=== PATIENT | male | born 1945 | race Caucasian/White ===

== ENCOUNTER 2017-09-14 09:31 | Outpatient (CLI) | payer MEDICARE, OTHER ==
--- NOTE | 2017-09-14 11:15 | CT ---
CT ABDOMEN AND PELVIS WITH AND WITHOUT IV CONTRAST: HISTORY: Asymptomatic microscopic hematuria. COMPARISON: 07/08/2010 FINDINGS: There is old granulomatous disease in the visualized portions of the chest. The liver, spleen, pancr eas, and adrenal glands are normal. No calcified gallstones are seen. There is a tiny soft tissue d ensity in the dependent portions of the gallbladder. No calculi are seen in the kidneys or the ureters. There is an 8 mm calculus in the urinary bladder, on the left, posteriorly. Bilateral parapelvic cysts are again seen. No enhancing renal mass is id entified. The prostate is mildly enlarged. There is thickening of the wall of the urinary bladder. There is a circumaortic left renal vein. No free air, free fluid, or lymphadenopathy is seen in the abdomen or pelvis. There are vascular arsenio cifications without evidence of aneurysmal dilatation of the abdominal aorta. Degenerative changes a re seen in the spine. IMPRESSION: 1. An 8 mm bladder calculus. 2. Mild prostatic enlargement and bladder wall thickening. 3. Bilateral parapelvic renal cysts. 4. Tiny density in the gallbladder. Dedicated gallbladder ultrasound is recommended. POS: [facility]
== END 2017-09-14 09:32 | disposition home or self-care (01) ==
LOC: SCSCT 09:31
PROVIDERS: ATTEND Urology
DX: R31.21 Asymptomatic microscopic hematuria (principal); N21.0 Calculus in bladder; N28.1 Cyst of kidney, acquired; N40.0 Benign prostatic hyperplasia without lower urinary tract symptoms; N32.89 Other specified disorders of bladder
CPT/HCPCS: 74178; 82565

== ENCOUNTER 2017-10-11 09:34 | Outpatient (CLI) | payer MEDICARE, OTHER ==
[2017-10-11 10:21] LABS: Bilirubin Negative (Negative); Blood, Urine Negative (Negative); Clarity CLEAR (Clear); Glucose, Urine (Dipstick) Negative (Negative); Leukocyte Moderate (Negative); Nitrite Negative (Negative); Protein, Urine (Dipstick) Negative (Neg-Trace); Urobilinogen 0.2 mg/dL (0.2-1.0); pH, Urine 6.5 (5.0-9.0)
[2017-10-11 10:23] LABS: Bacteria/HPF 1+ HPF (None Seen); Hyaline Casts/LPF 0-3 HYALINE CAST LPF (0-3 Hyaline); Pathc Cast-AUWi Flag 0.27 (0-2.49); RBC/HPF 0-3 HPF (0-3); Squamous Epithelial None Seen HPF (0-3); WBC/HPF 21-50 HPF (0-3)
[2017-10-11 10:25] LABS: #Basophils 0.1 thou/uL (0.0-0.2); #Eosinphils 0.1 thou/uL (0.0-0.7); #Lymphocytes 2.2 thou/uL (1.20-3.40); #Monocytes 0.6 thou/uL (0.11-0.59); #Neutrophils 3.3 thou/uL (1.40-6.50); %Eosinophils 1.6 % (0.0-10.0); %Lymphocytes 35.4 % (21.0-51.0); %Monocytes 9.4 % (0.0-10.0); %Neutrophils 52.6 % (42.0-75.0); Mean Corpuscular HGB CONC 33.8 g/dL (32.0-36.0); Mean Corpuscular Hemoglobin 32.7 pg (27.0-31.0); Mean Corpuscular Volume 96.8 fl (80.0-94.0); Mean Platelet Volume 7.6 fL (7.4-10.4); Platelet Count 240 thou/uL (130-400); RBC Distribution Width 12.4 % (11.5-14.5); White Blood Cell (WBC) Count 6.3 thou/uL (4.8-10.8)
[2017-10-11 10:30] LABS: Yeast-AUWi Flag 25.6 (0-25.0)
[2017-10-11 10:32] LABS: Yeast-All Forms None Seen HPF (None Seen)
[2017-10-11 11:35] LABS: Anion Gap 10 mmol/L (10-20); BUN (Urea Nitrogen) 13 mg/dL (8.4-25.7); Calc. Creatinine Clearance 0 mL/min (70-130); Calcium 9.5 mg/dL (7.8-10.44); Carbon Dioxide 27 mmol/L (23-31); Chloride 108 mmol/L (98-107); Estimated GFR-MDRD 89; Glucose 133 mg/dL (80-115); Potassium 3.8 mmol/L (3.5-5.1); Sodium 141 mmol/L (136-145)
== END 2017-10-11 09:35 | disposition home or self-care (01) ==
LOC: EKG 09:34
PROVIDERS: ATTEND Urology
DX: N40.1 Benign prostatic hyperplasia with lower urinary tract symptoms (principal)
CPT/HCPCS: 36415; 80048; 81001; 85025; 87077; 87086; 87186; 93005; 93010

== ENCOUNTER 2017-10-18 05:59 | Day surgery (SDC) | payer MEDICARE, OTHER ==
[2017-10-12 16:28] VITALS: BMI 30.4
[2017-10-18] MEDS ORDERED: Levofloxacin 500 mg/D5W 100 ml Premix Bag ONE (06:15)
[2017-10-18] MEDS ORDERED: Dexamethasone 4 mg/ml Vial ONE (06:16)
[2017-10-18] MEDS ORDERED: Fentanyl 100 MCG/2 ML VIAL ONE (06:25)
[2017-10-18] MEDS ORDERED: Iothalamate Meglumine 60% 50 ML VIAL FS ONE (06:33)
[2017-10-18] MEDS ORDERED: Furosemide 20 MG/2 ML VIAL ONE (09:33)
[2017-10-18] MEDS ORDERED: B & O ONE (09:37)
--- NOTE | 2017-10-18 14:09 | OP ---
DATE OF SERVICE: 10/18/2017 PREOPERATIVE DIAGNOSES: Bladder stone and benign prostatic hypertrophy. POSTOPERATIVE DIAGNOSES: Bladder stone and benign prostatic hypertrophy. PROCEDURE: GreenLight laser vaporization of the prostate with enucleation of the lateral lobes using 224,332 joules as well as cystolitholapaxy with holmium laser lithotripsy. SURGEON: Dr. Wilma Andrade ANESTHESIA: General with ET tube. SPECIMENS: Prostate, bladder stone. COMPLICATIONS: None. But there was significant venous bleeding from the right lateral lobe that required pressure with the balloon of a hubbard. ESTIMATED BLOOD LOSS: Blood loss was approximately 100 mL. DRAIN: Drain remaining was a 20 Indonesian 2-way. INDICATIONS: The patient is a 71-year-old male who is followed in the office and noted to have a bladder stone and BPH who is set up for definitive therapy based on the size of the stone and prostate and the lack of significant hematuria, I felt this could be done in the same procedure so he was set up for this. TECHNIQUE: The patient was brought into the room by Anesthesia, laid on the table in supine position after receiving general anesthetic. His legs were placed in lithotomy position and his perineum was prepped and draped in sterile fashion. Using a 22.5 Indonesian cystoscope and 30 degree lens it was traversed and the bladder inspected. The stone was noted and stayed out of the way and then attention was turned to the prostate were GreenLight was performed first. The middle lobe was taken down to the floor and then the lateral lobes were enucleated. The left lateral lobe did coalesce into the middle lobe more distally and this was all enucleated. The chips were all washed out and then the stone itself was still too large to be washed out, even with the prostate wide open. Prior to reaching the prostate, there was some venous oozing noted on the right and this was significant enough that I removed the scope and put a balloon blown up to 30 mL into the prostate and applied pressure of approximately 5-10 minutes. Once this was taken down and then put back in, there was significant clot that had to be irrigated out, but the bleeding had stopped. When the scope was removed a good stream was noted. Scope was put back in and assured all clots and chips were out and then attention was turned to the bladder stone. Holmium laser lithotripsy fragmented the stone into multiple fragments which were all removed and sent for specimen. At this point, the scope was removed a final time and a 20 Indonesian Hubbard was placed to gravity. The patient tolerated the procedure well and was then awakened and transferred to PACU in stable condition. POWER
[2017-10-18] MEDS ORDERED: Propofol 200 MG/20 ML VIAL ONE (16:03)
[2017-10-18] MEDS ORDERED: Lidocaine 1% PF 5 ML VIAL ONE (16:03)
[2017-10-18] MEDS ORDERED: ePHEDrine/0.9% NaCl/PF SYRINGE 50 mg/10 ml ONE (16:03)
[2017-10-18] MEDS ORDERED: Metoclopramide HCl 10 MG/2 ML VIAL ONE (16:03)
[2017-10-18] MEDS ORDERED: Glycopyrrolate 0.2 MG/ML 5 ML SYRINGE ONE (16:03)
[2017-10-18] MEDS ORDERED: diphenhydrAMINE 50 MG/ML VIAL ONE (16:03)
[2017-10-18] MEDS ORDERED: Ondansetron HCl/PF 4 MG/2 ML Vial ONE (16:03)
== END 2017-10-18 12:02 | disposition home or self-care (01) ==
LOC: SDC 05:59
PROVIDERS: ATTEND Urology
PROC: 0TCB8ZZ Extirpation of Matter from Bladder, Via Natural or Artificial Opening Endoscopic (ICD-10-PCS; principal; 2017-10-18)
PROC: 0V508ZZ Destruction of Prostate, Via Natural or Artificial Opening Endoscopic (ICD-10-PCS; 2017-10-18)
DX: N40.1 Benign prostatic hyperplasia with lower urinary tract symptoms (principal); N41.0 Acute prostatitis; N41.1 Chronic prostatitis; N21.0 Calculus in bladder; R39.12 Poor urinary stream; R35.0 Frequency of micturition; R39.11 Hesitancy of micturition; R35.1 Nocturia; E78.5 Hyperlipidemia, unspecified; N52.9 Male erectile dysfunction, unspecified; K51.90 Ulcerative colitis, unspecified, without complications; M19.90 Unspecified osteoarthritis, unspecified site; Z87.442 Personal history of urinary calculi; Z85.831 Personal history of malignant neoplasm of soft tissue; Z92.3 Personal history of irradiation; Z85.828 Personal history of other malignant neoplasm of skin; Z80.8 Family history of malignant neoplasm of other organs or systems; Z80.6 Family history of leukemia; Z79.899 Other long term (current) drug therapy; Z79.82 Long term (current) use of aspirin; Z88.5 Allergy status to narcotic agent; Z91.048 Other nonmedicinal substance allergy status; Z90.49 Acquired absence of other specified parts of digestive tract; Z98.890 Other specified postprocedural states
CPT/HCPCS: 82365; 88300; 88305; J0131; J1100; J1200; J1940; J1956; J2001; J2405; J2704; J2765; J3010; Q9961

== ENCOUNTER 2018-11-24 08:39 | Outpatient (CLI) | payer MEDICARE, OTHER ==
--- NOTE | 2018-11-24 09:12 | RAD ---
RADIOGRAPH ABDOMEN 1 VIEW: Date: 11/24/18 HISTORY: 73-year-old male with Z87.442, personal history of urinary calculi. History of bladder stone. COMPARISON: No prior [facility]. FINDINGS: No radiopaque calculus is visualized overlying the renal shadows, pelvis, or elsewhere in the abdomen . Bowel gas pattern is normal. IMPRESSION: Negative. POS: [facility]
== END 2018-11-24 08:40 | disposition home or self-care (01) ==
LOC: SCSRAD 08:39
PROVIDERS: ATTEND Urology
DX: Z09 Encounter for follow-up examination after completed treatment for conditions other than malignant neoplasm (principal); Z87.442 Personal history of urinary calculi
CPT/HCPCS: 74018

== ENCOUNTER 2019-10-05 08:30 | Outpatient (CLI) | payer MEDICARE, OTHER ==
--- NOTE | 2019-10-05 09:57 | ULT ---
HEPATIC DOPPLER: HISTORY: Elevated LFTs. COMPARISON: None. TECHNIQUE: Grayscale imaging of the liver is performed along with Doppler, color flow and spectral waveform anal ysis. FINDINGS: The head of pancreas has a normal echotexture. The remainder the pancreas is obscured by bowel gas. Increased echogenicity of the liver which may be due to hepatic steatosis or hepatocellular disease. Subsequent limited evaluation for hepatic masses and intrahepatic biliary dilatation. Right hepatic lobe measures 16.5 cm. Nonmobile echogenic foci adhering to the wall of the gallbladder which may represent multiple gallbla dder wall polyps. The largest polyp measures 0.8 cm. No evidence of gallbladder wall thickening or pericholecystic fluid. Negative Wong's sign. Common bile duct is not appreciated. Spleen measures 12.1 cm. Hepatic Doppler: There is patency and appropriate directional flow of the left hepatic vein, right he patic vein, middle hepatic vein, main portal vein, left portal vein, right portal vein and hepatic artery. There is patency and appropriate flow of the splenic vein and artery. IMPRESSION: 1. Normal hepatic Doppler. 2. Increased echogenicity of the liver which may be due to hepatic steatosis or hepatocellular diseas e. Correlation made with an abdomen CT from 09/14/2017 does not demonstrate any fatty replacement of the liver. If there is concern for hepatic masses, abdomen MRI or liver mass protocol CT can be perfo rmed. Transcribed Date/Time: 10/05/2019 10:06 AM
--- NOTE | 2019-10-05 15:52 | MRI ---
MRI RIGHT SHOULDER WITHOUT CONTRAST: HISTORY: Strain. Chronic shoulder pain. COMPARISON: None. FINDINGS: BICEPS TENDON: Mild increased extraarticular biceps tenosynovial fluid. Mild intraarticular tendinosis. LABRUM: Intrasubstance tearing throughout the superior labrum. Mild free edge fraying and volume loss of the inferior labrum. There is intrasubstance tear of the inferior labrum extending into the anterior in ferior labrum. There is a paralabral cyst along the inferior labrum measuring 4 x 7 mm. ROTATOR CUFF: There is extensive bursal surface fraying throughout the supraspinatus tendon along with multifocal 2 0-25% bursal surface tearing extending to the footprint. No full-thickness perforation. Mild tendin osis of the subscapularis with interstitial tearing as well as undersurface partial tearing. CARTILAGE: Multifocal full-thickness chondral fissures at the anterior and inferior glenoid. There is also mild chondral fraying and delamination of the inferior humeral head. BONES: There is moderate degenerative change of acromioclavicular joint. Type III acromion narrowing the rodriguez bacromial space. Normal glenoid version. There are anterior and posterior glenoid osteophytes. MUSCLES: The muscle signal and bulk is normal. SOFT TISSUES: There is mild synovitis in the subcoracoid space extending into the rotator interval. Abnormal thick ening of axillary pouch. IMPRESSION: 1. Type III acromion narrowing the subacromial space with subsequent bursal surface fraying of the s upraspinatus and infraspinatus tendon as well as 20-30% bursal surface tearing throughout the footpri nt supraspinatus tendon. No full-thickness perforation. 2. Intrasubstance tear superior labrum anterior-posterior to the biceps table expansion. 3. Inferior labral tear with inferior paralabral ganglion pseudocyst. 4. Osteophyte formation in the posterior and anterior glenoid suggesting multidirectional instabilit y. 5. Tyrosis and synovitis at the rotator interval with thickened axillary pouch can be seen with caps ulitis in the correct clinical setting. POS: OFF
== END 2019-10-05 08:31 | disposition home or self-care (01) ==
LOC: SCSULT 08:30
PROVIDERS: ATTEND Physician Assistant Medical
DX: R94.5 Abnormal results of liver function studies (principal); S46.911A Strain of unspecified muscle, fascia and tendon at shoulder and upper arm level, right arm, initial encounter; S43.491A Other sprain of right shoulder joint, initial encounter; M25.711 Osteophyte, right shoulder; M65.811 Other synovitis and tenosynovitis, right shoulder; M67.411 Ganglion, right shoulder; K76.89 Other specified diseases of liver
CPT/HCPCS: 76705

== ENCOUNTER → 2019-10-19 | Outpatient (CLI) | payer MEDICARE, OTHER ==
--- NOTE | 2019-10-19 11:44 | MRI ---
MRI CERVICAL SPINE WITHOUT CONTRAST: INDICATION: Osteoarthritis cervical spine. Neck pain. FINDINGS: Cervical vertebrae maintain height and alignment. Moderate degenerative changes are noted most promi nent at the C4-5, C5-6, and C6-7 levels. Loss of disk space at these levels with anterior osteophyte s. Mild anterior wedging at C4, C5, and C6 vertebrae. Degenerative end plate signal changes. Findi ngs at each level are described. At C2-3, no significant disk bulge or spondylosis. At C3-4, minimal disk bulge and spondylosis. Slight anterolisthesis measured at approximately 2 mm. No evidence of significant central canal or foraminal stenosis. At C4-5, mild disk bulge and spondylosis efface the anterior subarachnoid space. Mild right foramina l narrowing due to facet and uncinate hypertrophy. At C5-6, mild disk bulge and spondylosis flatten the thecal sac and efface the anterior subarachnoid space. No cord impingement. Mild bilateral foraminal narrowing due to facet and uncinate hypertroph y. At C6-7, there is mild disk bulge and spondylosis effacing the anterior subarachnoid space. These fi ndings are more pronounced to the right where there appears to be slight displacement of the traversi ng right nerve root. There is right foraminal encroachment at this level due to facet and uncinate h ypertrophy. At C7-T1, mild disk bulge flattens the thecal sac. The anterior subarachnoid space is well preserved . Mild facet encroachment on the right due to facet and uncinate hypertrophy. Cord signal appears normally maintained. IMPRESSION: There are moderate degenerative changes in the lower cervical spine as described. Mild posterior spo ndylosis at several levels without significant central canal stenosis. There is evidence of foramina l encroachment due to hypertrophic change most prominent at C6-7. POS: [facility]
== END ==
LOC: TBSIIMAG 12:11
PROVIDERS: ATTEND Orthopaedic Surgery
DX: M47.812 Spondylosis without myelopathy or radiculopathy, cervical region (principal); M89.38 Hypertrophy of bone, other site
CPT/HCPCS: 72141

== ENCOUNTER 2020-12-04 13:34 | Outpatient (CLI) | payer MEDICARE, OTHER ==
[2020-12-04 15:56] LABS: Hemoglobin 14.6 g/dL (13.5-17.5); Mean Corpuscular HGB CONC 32.9 g/dL (32.0-36.0); Mean Corpuscular Hemoglobin 31.9 pg (27.0-33.0); Mean Corpuscular Volume 97.2 fl (81.2-95.1); Mean Platelet Volume 11.4 fl (7.4-10.4); Platelet Count 201 10x3/uL (150-450); RBC Distribution Width 13.3 % (11.5-14.5); Red Blood Cell (RBC) Count 4.57 10x6/uL (4.32-5.72); White Blood Cell (WBC) Count 10.1 10x3/uL (3.5-10.5)
[2020-12-04 16:05] LABS: Anion Gap 11 mmol/L (10-20); BUN (Urea Nitrogen) 13 mg/dL (8.4-25.7); Calc. Creatinine Clearance 0 mL/min (70-130); Calcium 9.2 mg/dL (7.8-10.44); Carbon Dioxide 29 mmol/L (23-31); Chloride 107 mmol/L (98-107); Glucose 116 mg/dL (83-110); Potassium 4.5 mmol/L (3.5-5.1); Sodium 142 mmol/L (136-145)
[2020-12-04 16:43] LABS: Lymphocytes 47 % (21-51); Monocytes 2 % (0-10); Neutrophil 51 % (42-75)
[2020-12-04 16:44] LABS: MDiff Complete? YES; Stomatocytes SLIGHT = 2-5 cells (100X) (0-1/hpf)
[2020-12-04 16:45] LABS: Large Platelets SLIGHT; Platelet Morphology Comment Appears Adequate
[2020-12-05 04:28] LABS: SARS-CoV-2 PCR by NAA Not Detected (NotDetected)
== END 2020-12-04 13:35 | disposition home or self-care (01) ==
LOC: LABBT 13:34
PROVIDERS: ATTEND Specialist
DX: Z01.818 Encounter for other preprocedural examination (principal); K82.4 Cholesterolosis of gallbladder; Z20.822 Contact with and (suspected) exposure to COVID-19
CPT/HCPCS: 71046; 80048; 85025; 93005; U0003; U0005; 87635; 93010

== ENCOUNTER 2020-12-09 11:12 | Day surgery (SDC) | payer MEDICARE, OTHER ==
[2020-12-08 12:07] VITALS: BMI 29.5
[2020-12-09] MEDS ORDERED: Ketorolac Tromethamine 30 MG/ML VIAL ONE (12:23)
[2020-12-09] MEDS ORDERED: Acetaminophen 500 MG TAB ONE (12:23)
[2020-12-09] MEDS ORDERED: Fentanyl 100 MCG/2 ML VIAL ONE ×2 (13:24)
[2020-12-09] MEDS ORDERED: EPINEPHrine 1 MG/ML AMP ONE (13:25)
[2020-12-09] MEDS ORDERED: Bupivacaine 0.25% HCL 30 ML VIAL ONE (13:25)
[2020-12-09] MEDS ORDERED: Dexamethasone 20 MG/5 ML VIAL ONE (13:51)
[2020-12-09] MEDS ORDERED: Ondansetron PF 4 MG/2 ML Vial ONE (13:51)
[2020-12-09] MEDS ORDERED: PROPOFOL 200 MG/20 ML VIAL ONE (13:51)
[2020-12-09] MEDS ORDERED: Glycopyrrolate 0.2 MG/ML 5 ML SYRINGE ONE (13:51)
[2020-12-09] MEDS ORDERED: Rocuronium Bromide 10 MG/ML (10ML VIAL) ONE (13:51)
[2020-12-09] MEDS ORDERED: ePHEDrine 50 MG/ML VIAL ONE (13:51)
[2020-12-09] MEDS ORDERED: Lidocaine 1% PF 5 ML VIAL ONE (13:51)
[2020-12-09] MEDS ORDERED: Promethazine HCl 25 MG/ML VIAL ONE (16:34)
[2020-12-09] MEDS ORDERED: HYDROcodone/Acetaminophen 5/325 mg Tablet ONE (17:14)
== END 2020-12-09 17:50 | disposition home or self-care (01) ==
LOC: SDC 11:12
PROVIDERS: ATTEND Specialist
PROC: 0FT44ZZ Resection of Gallbladder, Percutaneous Endoscopic Approach (ICD-10-PCS; principal; 2020-12-09)
DX: K81.1 Chronic cholecystitis (principal); E78.5 Hyperlipidemia, unspecified; M19.90 Unspecified osteoarthritis, unspecified site; N52.9 Male erectile dysfunction, unspecified; N40.1 Benign prostatic hyperplasia with lower urinary tract symptoms; Z79.82 Long term (current) use of aspirin; Z79.899 Other long term (current) drug therapy; Z88.5 Allergy status to narcotic agent; Z91.048 Other nonmedicinal substance allergy status
CPT/HCPCS: 88304; J0171; J0690; J1100; J1885; J2405; J2550; J2704; J3010; J3490; S0020

== ENCOUNTER 2021-10-27 12:02 | Outpatient (CLI) | payer MEDICARE, OTHER ==
[2021-10-27 14:29] LABS: Mean Corpuscular HGB CONC 32.5 g/dL (32.0-36.0); Mean Corpuscular Hemoglobin 31.9 pg (27.0-33.0); Mean Corpuscular Volume 98.2 fl (81.2-95.1); Mean Platelet Volume 11.3 fl (7.4-10.4); Platelet Count 221 10x3/uL (150-450); Red Blood Cell (RBC) Count 4.39 10x6/uL (4.32-5.72); White Blood Cell (WBC) Count 16.8 10x3/uL (3.5-10.5)
[2021-10-27 14:39] LABS: INR-International Normal Ratio 0.9; PTT 22.9 sec (22.0-33.0); Prothrombin Time 10.4 sec (9.5-12.1)
[2021-10-27 14:41] LABS: Anion Gap 16 mmol/L (10-20); BUN (Urea Nitrogen) 15 mg/dL (8.4-25.7); Calc. Creatinine Clearance 0 mL/min (70-130); Calcium 8.7 mg/dL (7.8-10.44); Carbon Dioxide 20 mmol/L (23-31); Chloride 109 mmol/L (98-107); Glucose 123 mg/dL (83-110); Potassium 4.6 mmol/L (3.5-5.1); Sodium 140 mmol/L (136-145)
[2021-10-27 23:42] LABS: SARS-CoV-2 PCR by NAA Not Detected (NotDetected)
== END 2021-10-27 12:03 | disposition home or self-care (01) ==
LOC: LABBT 12:02
PROVIDERS: ATTEND Urology
DX: Z01.818 Encounter for other preprocedural examination (principal); Z12.5 Encounter for screening for malignant neoplasm of prostate; N40.1 Benign prostatic hyperplasia with lower urinary tract symptoms; N20.2 Calculus of kidney with calculus of ureter; R31.21 Asymptomatic microscopic hematuria; N21.0 Calculus in bladder; R35.1 Nocturia; R31.0 Gross hematuria; N28.1 Cyst of kidney, acquired; Z87.440 Personal history of urinary (tract) infections; Z90.79 Acquired absence of other genital organ(s); Z20.822 Contact with and (suspected) exposure to COVID-19
CPT/HCPCS: 80048; 85027; 85610; 85730; 93005; U0003; U0005; 93010

== ENCOUNTER 2021-10-28 09:54 | Day surgery (SDC) | payer MEDICARE, OTHER ==
[2021-10-27 14:12] VITALS: BMI 29.8
[2021-10-28] MEDS ORDERED: Lidocaine 1% MPF 2 ML VIAL ONE (11:07)
[2021-10-28] MEDS ORDERED: Levofloxacin 500 mg/D5W 100 ml Premix Bag ONE (12:58)
[2021-10-28] MEDS ORDERED: Fentanyl 250 MCG/5 ML VIAL ONE (12:58)
[2021-10-28] MEDS ORDERED: Ondansetron PF 4 MG/2 ML Vial ONE (13:09)
[2021-10-28] MEDS ORDERED: Dexamethasone 20 MG/5 ML VIAL ONE (13:09)
[2021-10-28] MEDS ORDERED: PROPOFOL 200 MG/20 ML VIAL ONE (13:09)
[2021-10-28] MEDS ORDERED: Lidocaine 1% PF 5 ML VIAL ONE (13:09)
[2021-10-28] MEDS ORDERED: Phenazopyridine HCl 100 MG TAB ONE ×2 (13:55→14:01)
[2021-10-28] MEDS ORDERED: HYDROcodone/Acetaminophen 5/325 mg Tablet ONE (15:07)
== END 2021-10-28 15:36 | disposition home or self-care (01) ==
LOC: SDC 09:54
PROVIDERS: ATTEND Urology
PROC: 0T778DZ Dilation of Left Ureter with Intraluminal Device, Via Natural or Artificial Opening Endoscopic (ICD-10-PCS; principal; 2021-10-28)
DX: N20.2 Calculus of kidney with calculus of ureter (principal); D29.1 Benign neoplasm of prostate; N32.0 Bladder-neck obstruction; N28.1 Cyst of kidney, acquired; E78.5 Hyperlipidemia, unspecified; M19.90 Unspecified osteoarthritis, unspecified site; Z79.82 Long term (current) use of aspirin; Z79.899 Other long term (current) drug therapy; Z88.5 Allergy status to narcotic agent; Z91.048 Other nonmedicinal substance allergy status
CPT/HCPCS: 74018; 74420; C2617; J1100; J1956; J2405; J2704; J3010

== ENCOUNTER 2021-10-30 11:09 | Outpatient (CLI) | payer MEDICARE, OTHER ==
[2021-10-30 12:02] LABS: Hemoglobin 13.7 g/dL (13.5-17.5); Mean Corpuscular HGB CONC 31.8 g/dL (32.0-36.0); Mean Corpuscular Hemoglobin 31.3 pg (27.0-33.0); Mean Corpuscular Volume 98.4 fl (81.2-95.1); Mean Platelet Volume 11.2 fl (7.4-10.4); Platelet Count 201 10x3/uL (150-450); RBC Distribution Width 13.4 % (11.5-14.5); Red Blood Cell (RBC) Count 4.38 10x6/uL (4.32-5.72); White Blood Cell (WBC) Count 11.9 10x3/uL (3.5-10.5)
[2021-10-30 12:19] LABS: Anion Gap 13 mmol/L (10-20); BUN (Urea Nitrogen) 15 mg/dL (8.4-25.7); Calc. Creatinine Clearance 0 mL/min (70-130); Calcium 8.9 mg/dL (7.8-10.44); Carbon Dioxide 27 mmol/L (23-31); Chloride 106 mmol/L (98-107); Glucose 142 mg/dL (83-110); Potassium 3.7 mmol/L (3.5-5.1); Sodium 142 mmol/L (136-145)
[2021-10-30 12:38] LABS: INR-International Normal Ratio 0.9; PTT 23.2 sec (22.0-33.0); Prothrombin Time 9.9 sec (9.5-12.1)
[2021-10-31 00:01] LABS: SARS-CoV-2 PCR by NAA Not Detected (NotDetected)
== END 2021-10-30 11:10 | disposition home or self-care (01) ==
LOC: LABBT 11:09
PROVIDERS: ATTEND Urology
DX: Z01.812 Encounter for preprocedural laboratory examination (principal); Z12.5 Encounter for screening for malignant neoplasm of prostate; N20.2 Calculus of kidney with calculus of ureter; N21.0 Calculus in bladder; N40.1 Benign prostatic hyperplasia with lower urinary tract symptoms; R31.21 Asymptomatic microscopic hematuria; R31.0 Gross hematuria; R35.1 Nocturia; N28.1 Cyst of kidney, acquired; Z90.79 Acquired absence of other genital organ(s); Z20.822 Contact with and (suspected) exposure to COVID-19; Z87.440 Personal history of urinary (tract) infections
CPT/HCPCS: 80048; 85027; 85610; 85730; U0003; U0005

== ENCOUNTER 2021-11-04 07:32 | Day surgery (SDC) | payer MEDICARE, OTHER ==
[2021-11-02 10:29] VITALS: BMI 29.8
[2021-11-04] MEDS ORDERED: Lidocaine 1% MPF 2 ML VIAL ONE (10:01)
[2021-11-04] MEDS ORDERED: B & O ONE (11:22)
[2021-11-04] MEDS ORDERED: Meperidine HCl/PF 25 MG/ML VIAL ONE (11:26)
[2021-11-04] MEDS ORDERED: Levofloxacin 500 mg/D5W 100 ml Premix Bag ONE (11:32)
[2021-11-04] MEDS ORDERED: Ondansetron PF 4 MG/2 ML Vial ONE (11:44)
[2021-11-04] MEDS ORDERED: Lidocaine 1% PF 5 ML VIAL ONE (11:44)
[2021-11-04] MEDS ORDERED: PROPOFOL 200 MG/20 ML VIAL ONE (11:44)
[2021-11-04] MEDS ORDERED: Oxybutynin 5 MG TAB ONE (12:59)
[2021-11-04] MEDS ORDERED: Phenazopyridine HCl 100 MG TAB ONE (12:59)
[2021-11-04] MEDS ORDERED: HYDROcodone/Acetaminophen 5/325 mg Tablet ONE (14:34)
== END 2021-11-04 15:00 | disposition home or self-care (01) ==
LOC: SDC 07:32
PROVIDERS: ATTEND Urology
PROC: 0T7D8DZ Dilation of Urethra with Intraluminal Device, Via Natural or Artificial Opening Endoscopic (ICD-10-PCS; principal; 2021-11-04)
PROC: 0TC68ZZ Extirpation of Matter from Right Ureter, Via Natural or Artificial Opening Endoscopic (ICD-10-PCS; 2021-11-04)
PROC: 0T768DZ Dilation of Right Ureter with Intraluminal Device, Via Natural or Artificial Opening Endoscopic (ICD-10-PCS; 2021-11-04)
DX: D29.1 Benign neoplasm of prostate (principal); N20.1 Calculus of ureter; N13.8 Other obstructive and reflux uropathy; N28.1 Cyst of kidney, acquired; E78.5 Hyperlipidemia, unspecified; M19.90 Unspecified osteoarthritis, unspecified site; N52.9 Male erectile dysfunction, unspecified; Z87.440 Personal history of urinary (tract) infections; Z79.82 Long term (current) use of aspirin; Z79.899 Other long term (current) drug therapy; Z88.5 Allergy status to narcotic agent; Z91.048 Other nonmedicinal substance allergy status; Z90.79 Acquired absence of other genital organ(s)
CPT/HCPCS: 52356; 74018; 74420; 82365; C9739; 88300; C2617; J1956; J2175; J2405; J2704; L8699

== ENCOUNTER 2022-03-31 10:40 | Outpatient (CLI) | payer MEDICARE, OTHER ==
[2022-03-31 15:04] LABS: Anion Gap 12 mmol/L (10-20); BUN (Urea Nitrogen) 12 mg/dL (8.4-25.7); Calc. Creatinine Clearance 0 mL/min (70-130); Calcium 9.3 mg/dL (7.8-10.44); Carbon Dioxide 26 mmol/L (23-31); Chloride 107 mmol/L (98-107); Estimated GFR 78; Glucose 88 mg/dL (83-110); Potassium 4.2 mmol/L (3.5-5.1); Sodium 141 mmol/L (136-145); Uric Acid 5.8 mg/dL (3.5-7.2)
[2022-03-31 15:19] LABS: Bacteria/HPF None Seen HPF (None Seen); Bilirubin Negative (Negative); Blood, Urine Negative (Negative); Clarity Clear (Clear); Glucose, Urine (Dipstick) Normal (Negative); Ketone, Urine Negative (Negative); Leukocyte 250 Leu/uL (Negative); Nitrite Negative (Negative); Protein, Urine (Dipstick) Negative (Neg-Trace); RBC/HPF 0-3 HPF (0-3); Specific Gravity, Urine 1.023 (1.002-1.036); Squamous Epithelial None Seen HPF (0-3); Urobilinogen Normal mg/dL (Less than 2); pH, Urine 5.5 (5.0-9.0)
[2022-03-31 15:21] LABS: Urine Culture Reflex Yes Yes
== END 2022-03-31 10:41 | disposition home or self-care (01) ==
LOC: SCSRAD 10:40
PROVIDERS: ATTEND Urology
DX: N20.2 Calculus of kidney with calculus of ureter (principal)
CPT/HCPCS: 36415; 74018; 80048; 81001; 83970; 84550; 87086

== ENCOUNTER 2022-05-31 09:22 | Outpatient (CLI) | payer MEDICARE, OTHER | END 2022-05-31 09:23 | disposition home or self-care (01) | LOC: NM 09:22 | PROVIDERS: ATTEND Specialist | DX: E21.3 Hyperparathyroidism, unspecified (principal) | CPT/HCPCS: 78072; A9500 ==

== ENCOUNTER 2023-09-29 09:40 | Outpatient (CLI) | payer MEDICARE, OTHER | END 2023-09-29 09:41 | disposition home or self-care (01) | LOC: RAD 09:40 | PROVIDERS: ATTEND Urology | DX: N20.0 Calculus of kidney (principal) | CPT/HCPCS: 74018 ==

== ENCOUNTER 2024-02-08 09:59 | Outpatient (CLI) | payer MEDICARE, OTHER ==
[2024-02-08 10:59] LABS: Bilirubin Neg (Negative); Blood, Urine Negative (Negative); Clarity Clear (Clear); Glucose, Urine (Dipstick) Normal (Negative); Ketone, Urine Negative (Negative); Leukocyte 100 (Negative); Nitrite Negative (Negative); Protein, Urine (Dipstick) 15 mg/dl (Neg-Trace); Specific Gravity, Urine 1.025 (1.005-1.030)
[2024-02-08 11:03] LABS: Hematocrit 45.6 % (38.8-50.0); Hemoglobin 15.5 g/dL (13.5-17.5); Mean Corpuscular Hemoglobin 32.2 pg (27.0-33.0); Mean Corpuscular Volume 94.8 fl (81.2-95.1); Mean Platelet Volume 11.3 fl (7.4-10.4); Platelet Count 220 10x3/uL (150-450); RBC Distribution Width 13.5 % (11.5-14.5); Red Blood Cell (RBC) Count 4.81 10x6/uL (4.32-5.72); White Blood Cell (WBC) Count 21.5 10x3/uL (3.5-10.5)
[2024-02-08 11:11] LABS: Bacteria/HPF Rare-Few HPF (None Seen); RBC/HPF 0-3 HPF (0-3)
[2024-02-08 11:25] LABS: Anion Gap 12 mmol/L (10-20); BUN (Urea Nitrogen) 14 mg/dL (8.4-25.7); Calc. Creatinine Clearance 0 mL/min (70-130); Calcium 9.9 mg/dL (7.8-10.44); Carbon Dioxide 23 mmol/L (23-31); Chloride 112 mmol/L (98-107); Estimated GFR 86; Glucose 97 mg/dL (83-110); Potassium 4.2 mmol/L (3.5-5.1); Sodium 143 mmol/L (136-145)
[2024-02-08 11:26] LABS: PTT 23.8 sec (22.0-33.0); Prothrombin Time 10.8 sec (9.5-12.1)
== END 2024-02-08 10:00 | disposition home or self-care (01) ==
LOC: LABBT 09:59
PROVIDERS: ATTEND Urology
DX: Z01.818 Encounter for other preprocedural examination (principal); Z12.5 Encounter for screening for malignant neoplasm of prostate; N21.0 Calculus in bladder; N40.1 Benign prostatic hyperplasia with lower urinary tract symptoms; R35.1 Nocturia; N20.0 Calculus of kidney; N28.1 Cyst of kidney, acquired; R97.20 Elevated prostate specific antigen [PSA]; R79.89 Other specified abnormal findings of blood chemistry; Z87.440 Personal history of urinary (tract) infections; Z90.79 Acquired absence of other genital organ(s)
CPT/HCPCS: 80048; 81001; 85027; 85610; 85730; 86850; 86900; 86901; 87086; 93005; 93010

== ENCOUNTER 2024-02-22 08:54 | Day surgery (SDC) | payer MEDICARE, OTHER ==
[2024-02-08 10:24] VITALS: BMI 29.8
[2024-02-22 12:47] LABS: #Basophils 0.04 10x3/uL (0.0-0.2); %Basophils 0.2 % (0.0-1.0); %Eosinophils 0.5 % (0.0-10.0); %Lymphocytes 71.9 % (21.0-51.0); %Monocytes 3.2 % (0.0-10.0); %Neutrophils 23.9 % (42.0-75.0); Hematocrit 44.5 % (42.0-52.0); Hemoglobin 15.1 g/dL (14.0-18.0); Mean Corpuscular HGB CONC 33.9 g/dL (32.0-36.0); Mean Corpuscular Hemoglobin 32.5 pg (27.0-31.0); Mean Corpuscular Volume 95.7 fL (78.0-98.0); Mean Platelet Volume 10.6 fL (7.4-10.4); Platelet Count 188 10x3/uL (130-400); RBC Distribution Width 13.6 % (11.5-14.5); Red Blood Cell (RBC) Count 4.65 mill/uL (4.70-6.10)
[2024-02-22] MEDS ORDERED: cefTRIAXone (ROCEPHIN) 2 GM VIAL ONE (13:17)
[2024-02-22] MEDS ORDERED: Sodium Chloride 0.9% 100 ML ONE (13:17)
[2024-02-22] MEDS ORDERED: PROPOFOL 20 ML ONE ×2 (13:20→13:46)
[2024-02-22] MEDS ORDERED: fentaNYL PF 100 MCG/2 ML SYRINGE ONE (13:20)
[2024-02-22] MEDS ORDERED: Ondansetron PF 4 MG/2 ML Vial ONE (14:12)
[2024-02-22] MEDS ORDERED: fentaNYL 50 mcg/mL 1 mL Vial ONE ×3 (14:46→15:28)
[2024-02-22] MEDS ORDERED: Oxybutynin 5 MG TAB ONE (15:01)
[2024-02-22] MEDS ORDERED: Phenazopyridine HCl 100 MG TAB ONE (15:01)
[2024-02-22] MEDS ORDERED: HYDROcodone/Acetaminophen 10/325 mg Tablet ONE (16:10)
== END 2024-02-22 16:40 | disposition home or self-care (01) ==
LOC: SDC 08:54
PROVIDERS: ATTEND Urology
PROC: 0V507ZZ Destruction of Prostate, Via Natural or Artificial Opening (ICD-10-PCS; principal; 2024-02-22)
DX: N40.1 Benign prostatic hyperplasia with lower urinary tract symptoms (principal); N13.8 Other obstructive and reflux uropathy; R35.1 Nocturia; E78.00 Pure hypercholesterolemia, unspecified; H40.9 Unspecified glaucoma; N28.1 Cyst of kidney, acquired; N21.0 Calculus in bladder; R79.89 Other specified abnormal findings of blood chemistry; Z98.890 Other specified postprocedural states; Z90.49 Acquired absence of other specified parts of digestive tract; Z90.89 Acquired absence of other organs; Z91.040 Latex allergy status; Z88.5 Allergy status to narcotic agent; Z90.79 Acquired absence of other genital organ(s); Z87.440 Personal history of urinary (tract) infections
CPT/HCPCS: 52630; 85025; 86850; 86900; 86901; A4333; J0696; J2405; J2704; J3010; J3490; 36415; 88305